=== PATIENT | male | born 1965 | race African-American/Black ===

== ENCOUNTER → 2020-12-08 | Outpatient (CLI) | payer OTHER ==
[~2020-12-08] MED LIST: ANCEF 1GM1 GM/50 M2 IV; CHLORTHALIDONE25 MG PO; HIGH BLOOD PRESSURE; LIDODERM 5%1 PATC1 TRANSDERM; PERCOCET PO; TAZTIA XT360 M1 PO; ZITHROMAX500 MG PO
== END ==
LOC: M.LAB 05:15
PROVIDERS: ATTEND Anesthesiology
DX: E87.6 Hypokalemia (principal)